=== PATIENT | male | born 1955 | race African-American/Black ===

== ENCOUNTER → 2020-04-20 | Outpatient (CLI) | payer OTHER ==
--- NOTE | 2020-04-20 10:49 | Diagnostic Imaging Report ---
SCROTAL ULTRASOUND HISTORY: Hydrocele spermatocelectomy TECHNIQUE: Sonographic evaluation of the scrotum. Color and pulsed wave Doppler ultrasound was used to assess testicular vasculature. COMPARISON: None available. FINDINGS: LEFT TESTIS: 4.5 x 1.9 x 3.4 cm. Normal echotexture, without focal lesions. RIGHT TESTIS: 5.0 x 2.5 x 3.6 cm. Normal echotexture, without focal lesions. VASCULAR: Normal arterial flow seen in the right testicle. No definite arterial flow seen in the left testicle. EPIDIDYMIDES: Unremarkable. SCROTUM: Moderate-sized bilateral scrotal hydrocele. OTHER: Marked scrotal skin thickening bilaterally, up to 1.7 cm in thickness on the right and 3.6 cm in thickness on the left. IMPRESSION: 1. No arterial flow visualized in the left testicle, which may be technical related to severe left greater than right scrotal skin thickening. 2. Moderate-sized bilateral scrotal hydrocele. Signed by: Db Ortiz MD on 04/20/2020 10:45 AM
== END ==
LOC: US 07:54
PROVIDERS: ATTEND Urology
DX: N43.3 Hydrocele, unspecified (principal)
CPT/HCPCS: 76870; 93976

== ENCOUNTER → 2020-06-01 | Day surgery (SDC) | payer OTHER ==
[2020-05-30 16:04] LABS: BASOPHILS % 0.4 % (0.0-1.0); EOSINOPHILS # (AUTO) 0.4 (0.0-0.4); EOSINOPHILS % 5.4 % (0.0-6.0); HEMOGLOBIN 13.8 g/dL (14.0-18.0); LYMPHOCYTES # (AUTO) 1.6 (1.0-3.2); LYMPHOCYTES % 23.5 % (18.0-39.1); MEAN CORPUSCULAR HEMOGLOBIN 27.5 pg (28-32); MEAN CORPUSCULAR HGB CONC 32.1 g/dL (31-35); MEAN CORPUSCULAR VOLUME 85.7 fL (81-99); MONOCYTES # (AUTO) 0.6 (0.2-0.8); MONOCYTES % 9.3 % (4.4-11.3); NEUTROPHILS # (AUTO) 4.2 (2.1-6.9); NEUTROPHILS % 61.1 % (38.7-80.0); PLATELET COUNT 180 x10e3/uL (140-360); RED BLOOD COUNT 5.02 x10e6/uL (4.3-5.7); RED CELL DISTRIBUTION WIDTH 15.3 % (11.7-14.4)
[2020-05-30 16:18] LABS: ANION GAP 15.1 mmol/L (8-16); CALCIUM 9.4 mg/dL (8.4-10.2); CREATININE, SERUM 2.18 mg/dL (0.72-1.25); POTASSIUM 4.1 mmol/L (3.5-5.1)
[~2020-06-01] MED LIST: AMLODIPINE BESY10 MG PO; ATORVASTATIN CA20 MG PO; CARVEDILOL12.5 MG PO; FLUTICASONE P15.8 ML; FUROSEMIDE40 MG PO; GLIPIZIDE5 MG PO; HYDRALAZINE HCL10 MG PO; LEVEMIR FL100 UNIT/1 SC
[2020-06-01] MEDS: CEFAZOLIN SOD 1 GM/NS 50ML 0 ML IV ONE (09:36)
== END | disposition home or self-care (01) ==
LOC: OR 08:20
PROVIDERS: ATTEND Urology
DX: N43.3 Hydrocele, unspecified (principal); Z53.09 Procedure and treatment not carried out because of other contraindication; E11.22 Type 2 diabetes mellitus with diabetic chronic kidney disease; I13.0 Hypertensive heart and chronic kidney disease with heart failure and stage 1 through stage 4 chronic kidney disease, or unspecified chronic kidney disease; N18.9 Chronic kidney disease, unspecified; I50.9 Heart failure, unspecified; Z01.810 Encounter for preprocedural cardiovascular examination; Z01.812 Encounter for preprocedural laboratory examination; Z20.828 Contact with and (suspected) exposure to other viral communicable diseases; Z86.19 Personal history of other infectious and parasitic diseases; Z79.84 Long term (current) use of oral hypoglycemic drugs; Z79.82 Long term (current) use of aspirin; Z68.38 Body mass index [BMI] 38.0-38.9, adult
CPT/HCPCS: 36415; 80048; 82948; 85025; 93005; J0690; U0002